=== PATIENT | female | born 1990 | race Caucasian/White ===

== ENCOUNTER 2025-04-25 15:28 | Emergency (ER) | payer MEDICAID, OTHER ==
[~2025-04-25] VITALS: Ht 165.1 cm; Wt 68.0 kg
[2025-04-25 15:33] VITALS: O2SAT 99
[2025-04-25 15:35] VITALS: TEMP 36.7; O2SAT 100
[2025-04-25] MEDS: CYCLOBENZAPRINE 10MG TABLET PO ONE (17:47)
[2025-04-25] MEDS: LIDOCAINE 5% PATCH TOP STA (17:47)
[2025-04-25 17:48] VITALS: BP 133/73; PULSE 79; RESP 16
[2025-04-25] MEDS: KETOROLAC 30MG/ML VIAL IM ONE (17:48)
[2025-04-25] MEDS ORDERED: CYCL10TA21 MT (19:33)
[2025-04-25] MEDS ORDERED: LIDO700A30 TP (19:33)
[2025-04-25] MEDS ORDERED: IBUP-1455 MT (19:33)
== END 2025-04-25 20:16 | disposition home or self-care (01) ==
LOC: ER 15:28
DX: M54.50 Low back pain, unspecified (principal); V49.9XXA Car occupant (driver) (passenger) injured in unspecified traffic accident, initial encounter; Y93.89 Activity, other specified; Y92.410 Unspecified street and highway as the place of occurrence of the external cause; Y99.8 Other external cause status
CPT/HCPCS: 99283; 81025; 72100; 96372; J1885